=== PATIENT | male | born 1950 | race Caucasian/White ===

== ENCOUNTER 2020-06-09 07:30 | Day surgery (SDC) | payer MEDICARE, OTHER ==
[~2020-06-09 07:30] MED LIST: Lactated Ringers 1,000 ML IV SCH; Sodium Chloride 0.9% 10 ML Syringe FLUSH PRN
[2020-06-09] MEDS ORDERED: Propofol 200 MG/20 ML SDV IV ONE (07:31)
[2020-06-09] MEDS ORDERED: Lidocaine 1% PF 2 ML SDV INJECT ONE (07:31)
--- NOTE | 2020-06-09 10:12 | PCM.OPNOTE ---
- General Post-Op/Procedure Note Date of Surgery/Procedure: 06/09/20 Operative Procedure(s): c scope with cold forceps biopsy. Findings: transverse colon: polyps x2, lipoma descending colon: polyps x3, diverticulosis, sigmoid: polyp x2 diverticulosis Pre Op Diagnosis: screening Post-Op Diagnosis: transverse colon: polyps x2, lipoma. descending colon: polyps x3, diverticulosis,. sigmoid: polyp x2 diverticulosis Anesthesia Technique: MAC Primary Surgeon: Matt Alonso Anesthesia Provider: Eder Davidson Pathology: transverse colon: polyps x2, descending colon: polyps x3, sigmoid: polyp x2 Complications: None Condition: Good Free Text/Narrative:: see dictation #[id number]
--- NOTE | 2020-06-09 13:40 | OR ---
DATE OF OPERATION: 06/09/2020 SURGEON: Matt Alonso MD PROCEDURE PERFORMED: Colonoscopy with cold forceps biopsy. PREOPERATIVE DIAGNOSIS: Colon cancer screening. POSTOPERATIVE DIAGNOSES: Transverse colon polyp x2, lipoma of the transverse colon, descending colon polyps x3, sigmoid colon x2, and diverticulosis of the distal descending and sigmoid colon. INDICATIONS FOR PROCEDURE: Mr. Velasquez is a 69-year-old white male who presents for a screening colonoscopy. He is without complaints. DESCRIPTION OF OPERATION: After an excellent IV sedation was administered, digital rectal exam was performed. No marked abnormality was noted. Flexible colonoscope was inserted and advanced to the cecum. The prep was excellent. The following findings were noted. Ascending colon, unremarkable. Transverse colon, 2 small polypoid lesions biopsied with the cold biopsy forceps. These were less than 5 mm in size and at the distal transverse colon, there was a submucosal soft mass dimpled with the application of the biopsy forceps and was very mobile with a yellowish tinge. This all appeared to be consistent with a lipoma. Biopsies were not taken and under different light spectrum there was as noted no mucosal abnormality. Descending colon, 3 small polypoid lesions, all under 5 mm in size, biopsied and submitted in 1 container. In the distal descending colon, there was occasional diverticula. Sigmoid, he had some very mild diverticulosis and had 2 small polypoid lesions, again less than 5 mm in size, which were biopsied and submitted in 1 container. The rectum was unremarkable. The patient tolerated the procedure well. He was taken to recovery room. Results will be sent to him via letter. /[id number] /MODL
== END 2020-06-09 11:13 | disposition home or self-care (01) ==
LOC: FB.SDS 07:30
PROVIDERS: ATTEND Surgery
DX: Z12.11 Encounter for screening for malignant neoplasm of colon (principal); D12.3 Benign neoplasm of transverse colon; D12.4 Benign neoplasm of descending colon; K57.30 Diverticulosis of large intestine without perforation or abscess without bleeding; Z91.041 Radiographic dye allergy status; Z79.899 Other long term (current) drug therapy
CPT/HCPCS: 00812-QZ; 88305; J2704; J7120

== ENCOUNTER 2024-10-31 06:56 | Day surgery (SDC) | payer MEDICARE, OTHER ==
[~2024-10-31 06:56] MED LIST changes: -Lactated Ringers 1,000 ML IV SCH
[2024-10-31] MEDS ORDERED: Propofol 200 MG/20 ML SDV IV ONE (06:57)
[2024-10-31] MEDS: Lactated Ringers 1,000 ML IV SCH (07:44)
== END 2024-10-31 08:45 | disposition home or self-care (01) ==
LOC: FB.SDS 06:56
PROVIDERS: ATTEND Surgery
DX: Z12.11 Encounter for screening for malignant neoplasm of colon (principal); D12.0 Benign neoplasm of cecum; K57.30 Diverticulosis of large intestine without perforation or abscess without bleeding; K40.90 Unilateral inguinal hernia, without obstruction or gangrene, not specified as recurrent; E66.9 Obesity, unspecified; Z68.31 Body mass index [BMI] 31.0-31.9, adult; Z91.041 Radiographic dye allergy status; Z79.899 Other long term (current) drug therapy; Z86.0101 Personal history of adenomatous and serrated colon polyps
CPT/HCPCS: 00811; 45385; 88305; 99100; A9270; J2704; J7120